=== PATIENT | male | born 1965 | race Caucasian/White ===

== ENCOUNTER → 2017-03-20 | Outpatient (CLI) | payer MEDICARE | LOC: RAD 15:44 | DX: M25.551 Pain in right hip (principal); M25.561 Pain in right knee; M87.851 Other osteonecrosis, right femur ==

== ENCOUNTER → 2017-05-04 | Outpatient (CLI) | payer MEDICARE | LOC: LAB 14:22 | DX: F19.10 Other psychoactive substance abuse, uncomplicated (principal) ==

== ENCOUNTER → 2019-03-18 | Outpatient (CLI) | payer MEDICARE ==
[2019-03-18 15:52] LABS: EOS # 0.1 (0.04-0.40); HEMATOCRIT 48.4 % (42.0-52.0); LYMPH# 1.9 (1.50-4.00); MEAN CELL VOLUME 99 fl (78-100); MEAN CORPUSCULAR HEMOGLOBIN 33 pg (27-31); MEAN CORPUSCULAR HGB CONC 33 g/dL (33-37); MEAN PLATELET VOLUME 8.7 fl (7.4-10.4); MONO # 0.7 (0.20-0.80); NEU # 3.9 (1.40-6.50); PLATELET COUNT 404 K/mm3 (130-400); RED BLOOD COUNT 4.87 M/mm3 (4.20-5.60); RED CELL DISTRIBUTION WIDTH 13.2 % (11.5-14.5); WHITE BLOOD COUNT 6.6 K/mm3 (4.8-10.8)
[2019-03-18 16:39] LABS: ALBUMIN 4.2 g/dL (3.5-5.0); CALCIUM 9.5 mg/dL (8.3-10.5); POTASSIUM 4.3 mmol/L (3.5-5.1); TOTAL BILIRUBIN 0.3 mg/dL (0.2-1.2); TOTAL PROTEIN 7.9 g/dL (6.4-8.3)
[2019-03-18 17:08] LABS: ERYTHROCYTE SEDIMENTATION RATE 15 mm/hr (0-20)
== END ==
LOC: LAB 15:36
PROVIDERS: Internal Medicine
DX: Z12.5 Encounter for screening for malignant neoplasm of prostate (principal); K50.90 Crohn's disease, unspecified, without complications; E78.2 Mixed hyperlipidemia

== ENCOUNTER → 2019-04-18 | Outpatient (CLI) | payer MEDICARE ==
[~2019-04-18] VITALS: Ht 175.3 cm; Wt 64.5 kg
[~2019-04-18] MED LIST: CYCLOBENZAPRINE10 M1 PO; PERCOCET 325 MG1 TA2 PO
[2019-04-18 16:56] LABS: EOS # 0.2 (0.04-0.40); EOS % 4.2 % (0.0-4.0); HEMOGLOBIN 15.7 g/dL (13.5-18.0); LYMPH# 1.6 (1.50-4.00); MEAN CELL VOLUME 99 fl (78-100); MEAN CORPUSCULAR HEMOGLOBIN 33 pg (27-31); MEAN CORPUSCULAR HGB CONC 33 g/dL (33-37); MEAN PLATELET VOLUME 9.4 fl (7.4-10.4); MONO # 0.5 (0.20-0.80); PLATELET COUNT 390 K/mm3 (130-400); RED BLOOD COUNT 4.73 M/mm3 (4.20-5.60); RED CELL DISTRIBUTION WIDTH 12.6 % (11.5-14.5); WHITE BLOOD COUNT 5.3 K/mm3 (4.8-10.8)
[2019-04-18 18:18] LABS: PROTHROMBIN TIME 8.8 SECONDS (9.0-12.0)
[2019-04-18 18:25] LABS: ALBUMIN 4.3 g/dL (3.5-5.0); POTASSIUM 4.6 mmol/L (3.5-5.1)
[2019-04-18 18:26] LABS: CALCIUM 9.7 mg/dL (8.3-10.5)
[2019-04-18 18:29] LABS: TOTAL BILIRUBIN 0.3 mg/dL (0.2-1.2); URINE APPEARANCE CLEAR; URINE BILIRUBIN NEGATIVE (NEGATIVE); URINE BLOOD NEGATIVE (NEGATIVE); URINE COLOR YELLOW; URINE GLUCOSE NEGATIVE (NEGATIVE); URINE KETONE NEGATIVE (NEGATIVE); URINE LEUKOCYTE ESTERASE NEGATIVE (NEGATIVE); URINE NITRATE NEGATIVE (NEGATIVE); URINE PROTEIN(semi-quant) NEGATIVE (NEGATIVE); URINE UROBILINOGEN NORMAL (NORMAL); URINE WBC 0-1 /hpf (0-3)
[2019-04-18 20:33] VITALS: BP 134/82
== END ==
LOC: LAB 16:05
PROVIDERS: Internal Medicine
DX: Z01.818 Encounter for other preprocedural examination (principal); M25.551 Pain in right hip; Z96.641 Presence of right artificial hip joint

== ENCOUNTER → 2019-05-14 | Outpatient (CLI) | payer MEDICARE ==
[2019-04-18 20:33] VITALS: BP 134/82
== END ==
LOC: RAD 17:43
DX: M47.812 Spondylosis without myelopathy or radiculopathy, cervical region (principal); I65.21 Occlusion and stenosis of right carotid artery; S14.109A Unspecified injury at unspecified level of cervical spinal cord, initial encounter; M25.512 Pain in left shoulder; S19.9XXA Unspecified injury of neck, initial encounter; W10.8XXA Fall (on) (from) other stairs and steps, initial encounter

== ENCOUNTER → 2019-06-09 | Outpatient (CLI) | payer MEDICARE ==
[2019-04-18 20:33] VITALS: BP 134/82
== END ==
LOC: VAS 10:11 → RAD 10:30
DX: I65.21 Occlusion and stenosis of right carotid artery (principal)

== ENCOUNTER → 2023-06-25 | Outpatient (CLI) | payer MEDICARE | LOC: RAD 17:19 | DX: K86.89 Other specified diseases of pancreas (principal) | CPT/HCPCS: A9575 ==

== ENCOUNTER → 2023-07-22 | Outpatient (CLI) | payer MEDICARE ==
[2023-07-22 15:04] LABS: BASO # 0.05 K/mm3 (0.02-0.10); EOS # 0.21 K/mm3 (0.04-0.40); EOS % 3.3 % (0.0-4.0); HEMATOCRIT 44.1 % (42.0-52.0); HEMOGLOBIN 14.6 g/dL (13.5-18.0); LYMPH# 1.85 K/mm3 (1.50-4.00); MEAN CELL VOLUME 97 fl (78-100); MEAN CORPUSCULAR HEMOGLOBIN 32 pg (27-31); MEAN CORPUSCULAR HGB CONC 33 g/dL (33-37); MEAN PLATELET VOLUME 8.7 fl (7.4-10.4); MONO # 0.55 K/mm3 (0.20-0.80); NEU # 3.64 K/mm3 (1.40-6.50); PLATELET COUNT 383 K/mm3 (130-400); RED BLOOD COUNT 4.55 M/mm3 (4.20-5.60); RED CELL DISTRIBUTION WIDTH 12.9 % (11.5-14.5); WHITE BLOOD COUNT 6.3 K/mm3 (4.8-10.8)
[2023-07-22 15:08] LABS: ALBUMIN 4.2 g/dL (3.5-5.0)
[2023-07-22 15:10] LABS: CALCIUM 9.1 mg/dL (8.3-10.5)
[2023-07-22 15:13] LABS: TOTAL BILIRUBIN 0.3 mg/dL (0.2-1.2)
[2023-07-22 15:18] LABS: MAGNESIUM 1.92 mg/dL (1.60-2.60)
[2023-07-22 15:46] LABS: PROTHROMBIN TIME 9.7 SECONDS (9.0-12.0)
[2023-07-22 15:53] LABS: URINE APPEARANCE HAZY; URINE COLOR YELLOW
[2023-07-22 15:54] LABS: URINE BILIRUBIN NEGATIVE (NEGATIVE); URINE BLOOD TRACE (NEGATIVE); URINE GLUCOSE NEGATIVE (NEGATIVE); URINE KETONE NEGATIVE (NEGATIVE); URINE LEUKOCYTE ESTERASE 2+ (NEGATIVE); URINE NITRATE NEGATIVE (NEGATIVE); URINE PROTEIN(semi-quant) NEGATIVE (NEGATIVE); URINE UROBILINOGEN NORMAL (NORMAL); URINE WBC 16-30 /hpf (0-3)
[2023-07-22 22:31] LABS: HEPATITIS C VIRUS ANTIBODY Negative (Negative)
== END ==
LOC: LAB 14:36
PROVIDERS: Internal Medicine
DX: Z01.818 Encounter for other preprocedural examination (principal); Z11.59 Encounter for screening for other viral diseases; Z11.4 Encounter for screening for human immunodeficiency virus [HIV]; Z12.11 Encounter for screening for malignant neoplasm of colon; E78.2 Mixed hyperlipidemia; R06.00 Dyspnea, unspecified; M89.29 Other disorders of bone development and growth, multiple sites; M51.9 Unspecified thoracic, thoracolumbar and lumbosacral intervertebral disc disorder; I63.89 Other cerebral infarction; M87.9 Osteonecrosis, unspecified; F41.1 Generalized anxiety disorder; F32.1 Major depressive disorder, single episode, moderate; F19.10 Other psychoactive substance abuse, uncomplicated; K50.90 Crohn's disease, unspecified, without complications; I10 Essential (primary) hypertension; I67.9 Cerebrovascular disease, unspecified; K90.9 Intestinal malabsorption, unspecified

== ENCOUNTER → 2023-08-14 | Outpatient (CLI) | payer MEDICARE | LOC: CARDREHAB 07:48 | DX: R06.00 Dyspnea, unspecified (principal) | CPT/HCPCS: A9500; J2785 ==

== ENCOUNTER 2023-11-09 07:56 | Outpatient (RCR) | payer MEDICARE | END 2023-11-11 | disposition home or self-care (01) | LOC: PT | DX: M16.11 Unilateral primary osteoarthritis, right hip (principal); Z96.641 Presence of right artificial hip joint ==

== ENCOUNTER 2023-11-12 08:10 | Outpatient (RCR) | payer MEDICARE | END 2023-12-10 | disposition home or self-care (01) | LOC: PT | DX: M16.11 Unilateral primary osteoarthritis, right hip (principal); Z96.641 Presence of right artificial hip joint ==

== ENCOUNTER 2023-12-11 08:00 | Outpatient (RCR) | payer MEDICARE | END 2024-01-06 11:46 | LOC: PT 08:00 | DX: M16.11 Unilateral primary osteoarthritis, right hip (principal); Z96.641 Presence of right artificial hip joint ==